=== PATIENT | male | born 1965 | race Caucasian/White ===

== ENCOUNTER 2017-12-04 12:36 | Emergency (ER) | payer OTHER ==
[2017-12-04 12:51] VITALS: BP 132/83; PULSE 73; RESP 18; TEMP 98
[2017-12-04] MEDS ORDERED: LIDOCAINE 1% INJ 10MG/ML (20 ML MDV) SQ STA (13:26)
--- NOTE | 2017-12-04 13:26 | XR ---
EXAMINATION TYPE: XR hand limited LT DATE OF EXAM: 12/04/2017 CLINICAL HISTORY: Laceration of the left hand at the second metacarpophalangeal joint. TECHNIQUE: Frontal and lateral images of the left hand are obtained. COMPARISON: None. FINDINGS: There is no acute fracture/dislocation evident in the left hand. The joint spaces in the l eft hand appear within normal limits. The overlying soft tissue appears unremarkable. Punctate 1 to 2 mm density at the ulnar aspect of the distal interphalangeal joint of the second digit may represen t remote injury as it is well corticated without overlying soft tissue swelling. Mild degenerative ch anges are seen at the first metacarpophalangeal joint as osseous irregularity and joint space narrowi ng. IMPRESSION: There is no acute fracture or dislocation in the left hand. No radiopaque foreign body i dentified. Punctate well-corticated density at the distal interphalangeal joint of the second digit a t the ulnar aspect likely relates to sequela of remote injury. Mild arthropathy at the first metacarp ophalangeal joint.
--- NOTE | 2017-12-04 13:45 | ED ---
General Adult HPI - General Chief complaint: Wound/Laceration Stated complaint: [facility] - lac to lt hand Time Seen by Provider: 12/04/17 12:59 Source: patient, RN notes reviewed Mode of arrival: ambulatory Limitations: no limitations - History of Present Illness Initial comments: Patient 52-year-old male presenting to the emergency room today with a chief complaint of laceration to the back of the left hand. 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 Patient does admit that his tetanus is up-to-date. He states he has full range motion. He states his sensation is intact. He denies any other complaints or symptoms. Patient denies any recent fever, chills, shortness of breath, chest pain, back pain, abdominal pain, nausea or vomiting, numbness or tingling, dysuria or hematuria, constipation or diarrhea, headaches or visual changes, or any other complaints. - Related Data Allergies Allergy/AdvReac Type Severity Reaction Status Date / Time No Known Allergies Allergy Verified 12/04/17 12:51 Review of Systems ROS Statement: Those systems with pertinent positive or pertinent negative responses have been documented in the HPI. ROS Other: All systems not noted in ROS Statement are negative. Past Medical History Past Medical History: Hypertension Additional Past Medical History / Comment(s): chrons History of Any Multi-Drug Resistant Organisms: None Reported Past Surgical History: Bowel Resection Past Psychological History: No Psychological Hx Reported Smoking Status: Never smoker Past Alcohol Use History: Occasional Past Drug Use History: None Reported General Exam - General Exam Comments Initial Comments: General: The patient is awake and alert, in no distress, and does not appear acutely ill. Neck: The neck is supple, there is no tenderness or JVD. Musculoskeletal: Full range motion. Sensation intact. Radial Pulses 2+. 5/5. Neurological: A&O x 3. CN II-XII intact, There are no obvious motor or sensory deficits. Coordination appears grossly intact. Speech is normal. Skin: Skin is warm and dry and no rashes or lesions are noted. Psychiatric: Normal mood and affect. Limitations: no limitations Course Vital Signs 12/04/17 12:48 Temperature 98.0 F Pulse Rate 73 Respiratory 18 Rate Blood Pressure 132/83 O2 Sat by Pulse 97 Oximetry Medical Decision Making - Medical Decision Making Patient's x-ray reviewed and is negative for radiopaque foreign body. Patient' s laceration closed Disposition Clinical Impression: Laceration Disposition: HOME SELF-CARE Condition: Good Instructions: Laceration (ED) Additional Instructions: Please return to the emergency room in 8-10 days to have sutures removed. Please watch for any signs of infection which may include increased pain, swelling, redness, fever or chills. Please return to emergency room for any signs of infection do occur. Please use clean soap and water over the area to prevent scabbing over your stitches. Please leave wound covered for the first 24-48 hours and then leave wound open to air. Please return to the emergency room for any other concerns. Is patient prescribed a controlled substance at d/c from ED?: No Referrals: Cayetano Arvizu MD [Primary Care Provider] - 1-2 days Time of Disposition: 13:44
--- NOTE | 2017-12-06 04:16 | CDI ---
Dear Adan Fraga DO: Please do addendum laceration repair procedure with length. Thank you, Valeriy Rodas, Hospital Account Liaison. If you have any questions, please contact Facility Maintenance Worker at [phone]. please foward to LAUR[facility] JEREZ
== END 2017-12-04 13:52 | disposition home or self-care (01) ==
LOC: EC 12:36
DX: S61.412A Laceration without foreign body of left hand, initial encounter (principal); W22.8XXA Striking against or struck by other objects, initial encounter; Y93.89 Activity, other specified; Y92.239 Unspecified place in hospital as the place of occurrence of the external cause; Y99.0 Civilian activity done for income or pay
CPT/HCPCS: 99283; 12001; 73120; J2001

== ENCOUNTER → 2024-10-04 | Day surgery (SDC) | payer OTHER ==
[2024-10-04 11:25] VITALS: BP 116/78; PULSE 63; RESP 16; TEMP 97.6
[2024-10-04] MEDS: GLUCAGON 1 MG/ML VIAL IM STA (11:33)
--- NOTE | 2024-10-04 13:11 | MR ---
EXAMINATION TYPE: MR Enterography DATE OF EXAM: 10/04/2024 12:15 PM COMPARISON: None. CLINICAL INDICATION: Male, 59 years old with history of K50.919 CROHN'S DISEASE, UNSPECIFIED, WITH UN SPECI; PHH, Crohn's disease. TECHNIQUE: Standard multiplanar, multisequence imaging of the abdomen is performed without and with I V contrast, patient is injected with 9.5 mL intravenous Gadobutrol gadolinium contrast. Oral Glucagon was given as per enterography protocol. Oral Contrast: 1500ml Breeza FINDINGS: LOWER CHEST: No significant findings. ABDOMEN Bowel: The small bowel distention is inadequate proximally. No definite evidence to suggest abnormal bowel wall thickening involving a small bowel or large bowel. No evidence of bowel obstruction. No evidence for mucosal hyperenhancement, stricture or fistulous tract formation. Peritoneum: No evidence of pneumoperitoneum, free fluid, or adenopathy. Liver: Unremarkable. Gallbladder and Bile ducts: Gallbladder is partially distended. No evidence for wall thickening thick ening or cholelithiasis. The intrahepatic and extrahepatic bili system are nondilated. Pancreas: Main pancreatic duct is within normal limits. No masses identified.. Spleen: Within normal limits for size. Adrenal glands: Unremarkable. Kidneys: No obstructive uropathy. No solid renal masses. Bladder: Partially distended. Grossly unremarkable. Reproductive: Prostate gland is within normal limits. Lymph Nodes: Vasculature: Unremarkable. No aortic aneurysm. Musculoskeletal: The osseous structures appear intact. Abdominal wall: Ventral wall hernia containing loops of small bowel along the surgical bed. IMPRESSION: 1. No evidence for active bowel disease. 2. Ventral wall hernia containing loops of small bowel. No evidence for obstruction. [facility], , 10/04/2024 1:09 PM
== END ==
LOC: RADMRIMAIN 09:42
PROVIDERS: ATTEND Internal Medicine Gastroenterology
DX: K50.90 Crohn's disease, unspecified, without complications (principal)
CPT/HCPCS: 96372; 72197; 74183; J1610; A9585